=== PATIENT | male | born 1980 | race Caucasian/White ===

== ENCOUNTER → 2024-06-23 | Outpatient (CLI) | payer BC ==
[2024-06-23 17:37] LABS: ALKALINE PHOSPHATASE 71 U/L (46-116); BUN 18 mg/dl (9-23); CHLORIDE 103 mmol/L (98-107); POTASSIUM 4.4 mmol/L (3.4-5.1); SGPT/ALT 35 U/L (5-49); TOTAL PROTEIN 8.6 gm/dL (6.0-8.0); URIC ACID 7.4 mg/dL (3.7-9.2)
[2024-06-23 17:43] LABS: BF LYMPHOCYTES 3 %; BF MONOCYTES 4 %; BF NEUTROPHILS 92 %
[2024-06-24 08:08] LABS: HBsAG SCREEN Negative (Negative); HCV Ab Non Reactive (Non Reactive); HEP B CORE Ab, IgM Negative (Negative)
[2024-06-24 14:07] LABS: ACID FAST SPEC PROCESSING Direct Inoculation (.)
[2024-06-24 15:07] LABS: ANTI-RNP ANTIBODIES <0.2 AI (0.0-0.9)
[2024-06-25 01:06] LABS: DVVTMIXRFX CHG (NP); LUPUS DRVVT 56.7 sec (0.0-47.0); PTT-LA 36.8 sec (0.0-43.5)
[2024-06-25 02:07] LABS: LUPUS REFLEX INTERPRETATION Comment: (.)
[2024-06-30 15:07] LABS: HLA-B27 ANTIGEN Negative (.)
== END | disposition home or self-care (01) ==
LOC: LAB 15:43
PROVIDERS: ATTEND Orthopaedic Surgery
DX: M25.461 Effusion, right knee (principal)

== ENCOUNTER → 2025-02-17 | Outpatient (CLI) | payer BC ==
[2025-02-17 10:37] LABS: BUN 16 mg/dl (9-23); SGPT/ALT 50 U/L (5-49)
== END | disposition home or self-care (01) ==
LOC: LAB 09:39
PROVIDERS: ATTEND Orthopaedic Surgery
DX: Z97.10 Presence of artificial limb (complete) (partial), unspecified (principal)